=== PATIENT | female | born 1995 | race Two or more races ===

== ENCOUNTER 2022-08-27 04:15 | Inpatient (IN) ==
[2022-08-27] MEDS ORDERED: LIDOCAINE 1% LOCAL 20 ML VIAL INFIL PRN (07:12)
[2022-08-27] MEDS ORDERED: OXYTOCIN 30 UNITS/500 ML BAG IV PRN ×3 (07:12→17:34)
[2022-08-27] MEDS: LACTATED RINGER'S 1,000 ML IV PRN ×4 (07:52→15:09)
[2022-08-27 08:14] LABS: Hemoglobin 15.4 g/dl (12.0-16.0); Mean Corpuscular Hemoglobin 32.8 pg (25.0-34.0); Mean Corpuscular Hgb Conc 34.2 g/dL (32.0-36.0); Mean Corpuscular Volume 95.9 fL (80.0-100.0); Platelet Count 137 K/uL (130-400); RDW Coefficient of Variation 17.6 % (11.5-14.5); RDW Standard Deviation 62.6 fL (36.4-46.3); Red Blood Count 4.69 M/uL (4.20-5.40); White Blood Count 8.75 K/ul (4.8-10.8)
--- NOTE | 2022-08-27 09:26 | History & Physical Report ---
Date of Service August 27, 2022 Assessment & Plan (1) Supervision of normal intrauterine in primigravida: Plan: Patient is a 26-year-old G1, P0 currently at 39 weeks 2 days gestational age in labor. 1. Fetus: Cat 1 2. Labor: Progressing, will AROM when appropriate 3. GBS negative 4. Vitals Normal (2) Normal labor: Admission and Anticipated Discharge Date Admission Date: August 27, 2022 History of Present Illness Primary Care Provider: NO PCP 26-year-old G1, P0 currently at 39 weeks 2 days gestational age presents in spontaneous labor. Denies leakage of fluid or vaginal bleeding. Reported good movement. complicated by anemia requiring iron transfusions. OB Labs: Blood Type B Positive 01/27/22 Antibody Screen NEGATIVE 01/27/22 Hemoglobin 10.4 g/dl (12.0-16.0) L 06/29/22 Hematocrit 33.7 % (37.0-47.0) L 06/29/22 Mean Corpuscular Volume 82.4 fL (80.0-100.0) 06/29/22 Platelet Count 182 K/uL (130-400) 06/29/22 Varicella-Zoster IgG Antibody 1461.00 index 01/27/22 Rubella IgG Antibody Immune (Immune) 01/27/22 Rapid Plasma Reagin Nonreactive (Nonreactive) 01/27/22 Hepatitis B Surface Antigen. NON-REACTIVE (NON-REACTIVE) 01/27/22 Hepatitis C Antibody (EIA) NON-REACTIVE (NON-REACTIVE) 01/27/22 HIV (1&2) Ag and Ab Confirmation NON-REACTIVE (NON-REACTIVE) 01/27/22 Glucose 1 Hour 50 gm Load 138 mg/dl (70-130) H 06/13/22 Maternal Serum Alpha Fetoprotein 44.3 ng/mL 03/21/22 OB Optional Labs: Chlamydia trachomatis RNA Not Detected (NotDetected) 01/27/22 Neisseria gonorrhoeae RNA Not Detected (NotDetected) 01/27/22 Alpha Fetoprotein Triple Screen SEE NOTE 03/21/22 Allergies Allergy/AdvReac Type Severity Reaction Status Date / Time No Known Allergies Allergy Verified 08/22/22 13:07 Home Medications Medication Instructions Recorded Confirmed Type ferrous sulfate 325 mg (65 mg 325 mg PO DAILY 08/27/22 08/27/22 History iron) tablet (Iron (ferrous sulfate)) vit no.95-ferrous 1 tab PO DAILY 08/27/22 08/27/22 History fumarate 28 mg-folic acid 800 mcg tablet () Patient History Medical History (Updated 08/27/22 @ 09:24 by Tejas Ramirez MD) Anemia affecting Surgical History (Updated 08/27/22 @ 04:47 by Mahnaz Bernal) No history of previous surgery Family History (Updated 08/27/22 @ 04:48 by Mahnaz Bernal) Other No known health problems Social History (Updated 08/27/22 @ 04:50 by Mahnaz Bernal) Smoking Status: Never smoker Do You Dip or Chew Tobacco: No; Hx Alcohol Use: No Hx Substance Use: No Preferred Language: Chadian Communication Ability: Effective Mail Distributor Required: No Beliefs That Will Affect Care: None marital status: marital status details: Ivan ([phone] Current Living Situation: Spouse Current Living Situation Comment: lives with spouse, no pets. current occupational status: unemployed Other Information That Helps Us Care for You: No Feels Safe at Home: Yes Safety Concerns: Feels Safe At This Time Diet: vegan Gender Identity: Female Assistive Devices: None Physical Exam Genitourinary: Manual OB Exam: + cervical dilation (2.5) and + station high OB Exam Monitor Tracing: + external FHT monitor used, + external uterine monitor used, + category I and + normal FHT variability Patient initially noted to be 2 and half centimeters dilated. 2-hour labor eval. With recheck noting patient at 4-1/2 cm dilation Results & Data Vital Signs (Past 12 Hours) Vital Signs Temp Pulse Resp BP 08/27/22 07:19 36.6 C 18 130/73 08/27/22 07:19 63 130/73 08/27/22 04:32 20 08/27/22 04:32 36.9 C 20 08/27/22 04:35 71 129/81 Coding Level of Care Code None Diagnoses Supervision of normal intrauterine in primigravida Z34.00 Normal labor O80; Z37.9
[2022-08-27] MEDS ORDERED: BUPIVACAINE 0.25% PF 30 ML VIAL ONE (10:25)
[2022-08-27] MEDS ORDERED: ePHEDrine sulfate 50 MG/ML AMP ONE (10:25)
[2022-08-27] MEDS ORDERED: LIDOCAINE 2%/EPINEPHRINE 1:200,000 20 ML PF ONE (10:25)
[2022-08-27] MEDS ORDERED: SODIUM CHLORIDE 0.9% PF INJ 10 ML VIAL ONE (10:25)
[2022-08-27] MEDS ORDERED: fentaNYL citrate PF 100 MCG/2 ML VIAL ONE (10:25)
[2022-08-27] MEDS ORDERED: fentaNYL 2MCG/ML ROPIVACAINE 1.25MG/ML 100 ML BAG EPI ONE (10:26)
--- NOTE | 2022-08-27 11:03 | Anesthesiology Consultation ---
Date of Service August 27, 2022 Assessment & Plan Chart Review Chart Review: Acceptable Risk for Surgery and Patient NOT seen in Pre Admission Testing Consults Requested none ASA ASA2 Proposed Anesthesia Anesthesia Type: Labor Epidural and CSE History Height/Weight Height: 5 ft 2 in Weight: 70.76 kg Allergies Allergy/AdvReac Type Severity Reaction Status Date / Time No Known Allergies Allergy Verified 08/22/22 13:07 Medications Home Medications Medication Instructions Recorded Confirmed Last Taken ferrous sulfate 325 mg (65 mg 325 mg PO DAILY 08/27/22 08/27/22 08/26/22 09:00 iron) tablet (Iron (ferrous sulfate)) vit no.95-ferrous 1 tab PO DAILY 08/27/22 08/27/22 08/26/22 09:00 fumarate 28 mg-folic acid 800 mcg tablet () Active Medications Generic Name Dose Route Start Last Admin Trade Name Freq PRN Reason Stop Dose Admin Lactated Ringer's 1,000 mls @ 125 mls/hr 08/27/22 07:12 08/27/22 08:47 Lr IV 08/29/22 07:11 125 mls/hr .Q8H PRN Administration L&D Protocol Protocol Oxytocin 30 units in 500 mls @ 2 mls/hr 08/27/22 09:19 08/27/22 11:00 Pitocin IV 08/29/22 09:18 0.24 units/hr .Q24H PRN 4 mls/hr Labor Induction/Augmentation Titration Protocol 0.12 UNITS/HR Past Medical History Medical History Anemia affecting Exercise / Class Metabolic Activity II 4-5 Yardwork/Stairs/Walk up hill Past Family History Family History Other No known health problems Past Surgical History Surgical History No history of previous surgery Past Anesthesia History No Hx of Anesthesia Complications and No Family Hx of Anesthesia Complications History of PONV No Hx of PONV and No Hx of Motion Sickness Social History Smoking Status: Never smoker Do You Dip or Chew Tobacco: No Hx Alcohol Use: No Hx Substance Use: No substance use type: does not use Physical Exam Vital Signs Last Vital Signs Temp 36.6 C 08/27/22 07:19 Pulse 70 08/27/22 10:57 Resp 18 08/27/22 07:19 BP 120/63 08/27/22 10:55 Pulse Ox 99 08/27/22 10:57 Testing Laboratory Results 08/27/22 07:25
[2022-08-27] MEDS ORDERED: PROMETHAZINE HCL 25 MG in SODIUM CHLORIDE 0.9% 50 ML IV PRN (11:37)
[2022-08-27] MEDS ORDERED: fentaNYL 2MCG/ML ROPIVACAINE 1.25MG/ML 100 ML BAG EPI PRN (11:37)
[2022-08-27] MEDS ORDERED: ROPIVACAINE 0.5% PF 5 MG/ML 20 ML VIAL EPI PRN (11:37)
[2022-08-27] MEDS ORDERED: BUPIVACAINE 0.25% PF 30 ML VIAL EPI STA (11:37)
[2022-08-27] MEDS ORDERED: NALOXONE HCL 0.4 MG/1 ML VIAL/CARP IV PRN (11:37)
[2022-08-27] MEDS ORDERED: SODIUM CHLORIDE 0.9% PF INJ 10 ML VIAL EPI PRN (11:37)
[2022-08-27] MEDS ORDERED: LIDOCAINE 2%/EPINEPHRINE 1:200,000 20 ML PF EPI STA (11:37)
[2022-08-27] MEDS ORDERED: NALOXONE HCL 1 MG in SODIUM CHLORIDE 0.9% 1000ML 1,000 ML IV PRN (11:37)
[2022-08-27] MEDS ORDERED: LIDOCAINE 2% MPF LOCAL 5 ML VIAL EPI PRN (11:37)
[2022-08-27] MEDS ORDERED: fentaNYL citrate PF 100 MCG/2 ML VIAL EPI STA (11:37)
[2022-08-27] MEDS ORDERED: ONDANSETRON INJ 2 MG/ML 2 ML VIAL IV PRN (11:37)
[2022-08-27] MEDS ORDERED: fentaNYL citrate PF 100 MCG/2 ML VIAL EPI PRN (11:37)
[2022-08-27] MEDS ORDERED: NALBUPHINE HCL INJ 10 MG/ML AMP IV PRN (11:37)
[2022-08-27] MEDS ORDERED: SODIUM CHLORIDE 0.9% PF INJ 10 ML VIAL EPI STA (11:37)
[2022-08-27] MEDS ORDERED: diphenhydrAMINE 50 MG/ML VIAL IV PRN (11:37)
[2022-08-27] MEDS ORDERED: BUPIVACAINE 0.25% PF 30 ML VIAL EPI PRN (11:37)
[2022-08-27] MEDS ORDERED: ePHEDrine sulfate 50 MG/ML AMP IV PRN (11:37)
--- NOTE | 2022-08-27 12:23 | Labor Progress Brief Note ---
Date of Service August 27, 2022 Subjective Reason For Note: Routine Evaluation Assessment & Plan (1) Supervision of normal intrauterine in primigravida: Plan: Patient is a 26-year-old G1, P0 currently at 39 weeks 2 days gestational age in labor. 1. Fetus: Cat 1 2. Labor: Progressing, 3. GBS negative 4. Vitals Normal (2) Normal labor: Admission and Anticipated Discharge Date Admission Date: August 27, 2022 Physical Exam Genitourinary: Manual OB Exam: + cervical dilation 6 cm, + cervical effacement 80%, + station -1 and + amniotic fluid (SROM) meconium Results & Data Vital Signs (Past 12 Hours) Vital Signs Temp Pulse Resp BP Pulse Ox 08/27/22 07:19 36.6 C 18 130/73 08/27/22 12:18 71 108/82 08/27/22 12:17 74 99 08/27/22 12:14 75 112/70 08/27/22 12:12 75 98 08/27/22 12:10 60 130/76 08/27/22 12:00 18 08/27/22 12:00 18 08/27/22 12:07 71 98 08/27/22 12:05 74 108/66 08/27/22 12:02 68 99 08/27/22 11:36 18 08/27/22 11:36 18 08/27/22 11:55 16 08/27/22 11:55 16 08/27/22 11:57 80 99 08/27/22 11:58 69 127/74 08/27/22 11:52 65 99 08/27/22 11:53 70 124/72 08/27/22 11:48 74 107/61 08/27/22 11:47 73 16 98 08/27/22 11:42 73 98 08/27/22 11:43 75 102/60 08/27/22 11:41 71 18 104/58 L 08/27/22 11:39 71 111/60 08/27/22 11:37 71 121/65 97 08/27/22 11:35 75 101/56 L 08/27/22 11:33 74 96/51 L 08/27/22 11:34 70 99/56 L 08/27/22 11:32 78 16 98 08/27/22 11:31 69 105/54 L 08/27/22 11:27 100 08/27/22 11:27 72 08/27/22 11:27 73 112/76 08/27/22 11:25 74 112/75 08/27/22 11:22 77 100 08/27/22 11:17 81 100 08/27/22 11:12 75 100 08/27/22 11:10 76 122/74 08/27/22 11:09 77 91 08/27/22 11:07 70 96 08/27/22 11:02 77 97 08/27/22 11:00 18 08/27/22 11:00 36.7 C 18 08/27/22 10:57 70 99 08/27/22 10:55 67 120/63 08/27/22 10:52 65 99 08/27/22 10:47 69 99 08/27/22 10:42 70 129/65 99 08/27/22 10:41 76 86 L 08/27/22 10:25 68 115/70 08/27/22 10:20 69 114/73 08/27/22 10:10 77 113/72 08/27/22 09:55 82 130/74 08/27/22 07:19 63 130/73 08/27/22 04:32 20 08/27/22 04:32 36.9 C 20 08/27/22 04:35 71 129/81 Coding Level of Care Code None Diagnoses Supervision of normal intrauterine in primigravida Z34.00 Normal labor O80; Z37.9
[2022-08-27] MEDS ORDERED: bisacodyL 10 MG SUPP PR PRN (17:34)
[2022-08-27] MEDS ORDERED: DIPHTHERIA/TETANUS/PERTUSSIS Vaccine (Tdap, Age 7+yrs) 0.5mL SYR/VL IM ONE (17:34)
[2022-08-27] MEDS ORDERED: HYDROCORTISONE ACETATE 25 MG SUPP PR PRN (17:34)
[2022-08-27] MEDS ORDERED: BENZOCAINE 20% AER SPR 82.5 GM CAN EXT PRN (17:34)
--- NOTE | 2022-08-27 18:14 | Anesthesia Procedure Note ---
Date of Service August 27, 2022 Anesthesia Post Epidural Note Vital Signs Vital Signs: Temp Pulse Resp BP Pulse Ox 37.3 C 71 18 106/66 96 08/27/22 17:30 08/27/22 18:04 08/27/22 18:00 08/27/22 18:04 08/27/22 17:02 Pain Intensity Abdomen: Pain Intensity: 2 Notes Mental Status: alert / awake / arousable Nausea / Vomiting: adequately controlled Pain: adequately controlled Airway Patency, RR, SpO2: stable & adequate BP & HR: stable & adequate Hydration State: stable & adequate Neuraxial Anesthesia: was administered and sensory block is resolving Anesthetic Complications: no major complications apparent Epidural: Removed without complications and With tip intact
[2022-08-27] MEDS: IBUPROFEN 600 MG TAB PO PRN (20:52)
[2022-08-27] MEDS: DOCUSATE SODIUM 100 MG CAP PO SCH (20:52)
--- NOTE | 2022-08-27 23:01 | Delivery Summary ---
DATE OF SERVICE: 08/27/2022 PROCEDURE: Normal spontaneous vaginal delivery with second-degree perineal laceration repair. SURGEON: Tejas Ramirez MD. PREOPERATIVE DIAGNOSES: 1. Single intrauterine at 39 weeks 2 days gestational age. 2. Spontaneous labor. 3. Anemia, complicating . POSTOPERATIVE DIAGNOSES: 1. Single intrauterine at 39 weeks 2 days gestational age. 2. Spontaneous labor. 3. Anemia, complicating . 4. Status post procedure. ESTIMATED BLOOD LOSS: 300 mL. DRAINS: Straight cath at the completion of the case. URINE OUTPUT: Per straight cath. COMPLICATIONS: None. FINDINGS: Viable female with weight and Apgars pending. DESCRIPTION OF PROCEDURE: The patient progressed to 10 cm dilated, 100% effaced, positive 2 station, pushed over intact perineum with epidural anesthesia, delivered a viable female with weight and Apgars as noted above. Head of the delivered in BRYON position, restituted to right transv erse. A double nuchal and body cord was noted. The was delivered through and after which th e nuchal cord was reduced. The was placed on maternal abdomen, was noted to be vigorous soon after delivery. One minute delayed cord clamping was initiated. remained on maternal abdom en. Cord blood was obtained. Attention was then turned to delivery of the placenta, which was deliv ered intact, 3-vessel cord, gentle cord traction. On inspection of perineum, vagina, cervix, there w as noted to be a second-degree perineal laceration, which was repaired with 3-0 Vicryl continuous run reid stitch in a traditional crown fashion. Needle, sponge, and instrument counts were correct at th e completion of the case. Both mother and stable in the immediate post-delivery period. Job ID: [id number]
[2022-08-27] MEDS: ACETAMINOPHEN 325 MG TAB PO PRN (23:53)
[2022-08-28] MEDS: IBUPROFEN 600 MG TAB PO PRN ×5 (04:28→20:30)
[2022-08-28 05:58] LABS: Hematocrit (blood only) 37.2 % (37.0-47.0); Hemoglobin 12.9 g/dl (12.0-16.0)
--- NOTE | 2022-08-28 07:59 | Obstetrical Progress Note ---
Date of Service <Matthieu EspanaSelene RafaelDO - Last Filed: 08/28/22 08:00> August 28, 2022 Assessment & Plan <Matthieu HallDO - Last Filed: 08/28/22 08:00> (1) Vaginal delivery: - Feels well today. Eating well, voiding well, ambulating well. - Pain well controlled with ibuprofen 600mg Q4H PRN - Routine care -- OOB, ambulation, diet progression as tolerated - After discharge will have 6 week follow-up with Dr. Ramirez. Day #:: 1 <Tejas Ramirez MD - Last Filed: 08/31/22 14:53> (1) Vaginal delivery: Subjective <Matthieu EspanaSelene DonDO florencia - Last Filed: 08/28/22 08:00> Ambulation: ambulating normally Voiding: no voiding problems Passing Gas:: Yes Diet Tolerance:: regular diet Lochia:: Small Feeding Type:: breast feeding Current Pain Level(1-10): 6 Review of Systems Denies fever, chills, sweats Denies shortness of breath, difficulty breathing, chest pain, palpitations, chest pressure. Denies breast pain. Denies dysuria. Denies headache or changes in vision. Physical Exam <Matthieu Ochoaflorencia - Last Filed: 08/28/22 08:00> General: Alert, oriented. No acute distress. Cardiac: Regular rate and rhythm, no murmurs/rubs/gallops. Respiratory: Clear to auscultation bilaterally a/p, no wheezes/rales/rhonchi. No increased work of breathing. Symmetrical chest rise. No respiratory distress. Abdomen: Soft, nontender, nondistended. Bowel sounds present. Uterus: Uterine fundus firm, palpable 1 cm below umbilicus. Lower Extremities: No lower extremity edema or swelling. No deep calf pain. Garrick's negative bilaterally. Results & Data <Matthieu HallDO - Last Filed: 08/28/22 08:00> Vital Signs (Past 12 Hours) Vital Signs Temp Pulse Resp BP Pulse Ox O2 Del Method 08/28/22 03:33 36.5 C 63 18 105/69 98 Room Air 08/27/22 23:15 36.6 C 57 L 18 116/70 99 Room Air Laboratory Results 08/28/22 05:35 <Tejas Ramirez MD - Last Filed: 08/31/22 14:53> Co-Signing Physician Notes Patient seen with resident and agree with the above findings and plan.
[2022-08-28] MEDS: FERROUS SULFATE 325 MG TAB PO SCH (08:18)
[2022-08-28] MEDS: PRENATAL VITAMIN 1 TAB PO SCH (08:18)
[2022-08-28] MEDS: DOCUSATE SODIUM 100 MG CAP PO SCH ×2 (08:18→20:30)
[2022-08-28] MEDS: ACETAMINOPHEN 325 MG TAB PO PRN ×2 (09:34→15:24)
[2022-08-28] MEDS ORDERED: bisacodyL 5 MG TABEC PO SCH (20:00)
--- NOTE | 2022-08-29 06:53 | Obstetrical Progress Note ---
Date of Service <Matthieu Hall DO - Last Filed: 08/29/22 06:53> August 29, 2022 Assessment & Plan <Matthieu Hall DO - Last Filed: 08/29/22 06:53> (1) Vaginal delivery: - Feels well today. Eating well, voiding well, ambulating well. - Pain well controlled with ibuprofen 600mg Q4H PRN - Routine care -- OOB, ambulation, diet progression as tolerated - After discharge will have 6 week follow-up with Dr. Ramirez. - Will D/C today. Day #:: 2 <Lucila Todd MD - Last Filed: 08/29/22 06:54> (1) Vaginal delivery: Subjective <Matthieu Hall DO - Last Filed: 08/29/22 06:53> Ambulation: ambulating normally Voiding: no voiding problems Passing Gas:: Yes Diet Tolerance:: regular diet Lochia:: Small Feeding Type:: breast feeding Current Pain Level(1-10): 3 Review of Systems Denies fever, chills, sweats Denies shortness of breath, difficulty breathing, chest pain, palpitations, chest pressure. Denies breast pain. Denies dysuria. Denies headache or changes in vision. Physical Exam <Matthieu Hall DO - Last Filed: 08/29/22 06:53> General: Alert, oriented. No acute distress. Cardiac: Regular rate and rhythm, no murmurs/rubs/gallops. Respiratory: Clear to auscultation bilaterally a/p, no wheezes/rales/rhonchi. No increased work of breathing. Symmetrical chest rise. No respiratory distress. Abdomen: Soft, nontender, nondistended. Bowel sounds present. Uterus: Uterine fundus firm, palpable 2 cm below umbilicus. Lower Extremities: No lower extremity edema or swelling. No deep calf pain. Garrick's negative bilaterally. Results & Data <Matthieu Hall DO - Last Filed: 08/29/22 06:53> Vital Signs (Past 12 Hours) Vital Signs Temp Pulse Resp BP Pulse Ox O2 Del Method 08/29/22 00:26 36.7 C 70 18 104/70 97 Room Air 08/28/22 20:20 36.7 C 67 18 106/68 95 Room Air <Lucila Todd MD - Last Filed: 08/29/22 06:54> Co-Signing Physician Notes Resident Physician Supervision Note: I interviewed and examined the patient. Discussed with Dr. Hall and agree with findings and plan as documented in the note. Any exceptions or clarifications are listed here: PP2 s/p , doing well. VSS, exam benign and wnl. Stable for dc home Documented By: Lucila Todd MD Resident Activity Tracking <Matthieu Hall DO - Last Filed: 08/29/22 06:53> Resident Involvement: Resident Care Provided Care Provided: OB Delivery
[2022-08-29] MEDS: FERROUS SULFATE 325 MG TAB PO SCH (08:15)
[2022-08-29] MEDS: DOCUSATE SODIUM 100 MG CAP PO SCH (08:15)
[2022-08-29] MEDS: PRENATAL VITAMIN 1 TAB PO SCH (08:15)
[2022-08-29] MEDS: IBUPROFEN 600 MG TAB PO PRN (09:07)
--- NOTE | 2022-08-30 08:12 | Coding Query ---
CODING QUERY To promote full compliance with coding requirements relating to patient care, provider participation is requested in all cases of softball core molder uncertainty. Please assist us with the question(s) below: Coding Question(s): Dr. Ramirez, The delivery report states, "A double nuchal and body cord was noted. The was delivered through and after which the nuchal cord was reduced." Please clarify the following information regarding the nuchal and body cord: ( ) Nuchal cord with compression ( X ) Nuchal cord without compression ( ) Body cord with compression ( X ) Body cord without compression Physician's Response(s): Thank you for your time, KIMANI Tom, [facility]
== END 2022-08-29 16:17 | disposition home or self-care (01) | DRG 807 ==
LOC: OPB 04:15 → 4S1 04:20 → 4E2 20:11